=== PATIENT | male | born 1945 | race Caucasian/White ===

== ENCOUNTER → 2016-10-05 | Outpatient (CLI) | payer MEDICARE, OTHER ==
[~2016-10-05] MED LIST: ALLEGRA PO; ALPRAZOLAM PO; ALPRAZOLAM0.5 MG PO; AMLODIPINE BESY10 MG PO; AMOXICILLIN500 M1 PO; ASPIRIN81 M2 PO; ASPIRINEC PO; BUMEX2 MG PO; C-10001000 M1 PO; CELEBREX PO; CERTAGEN PO; COATED ASPIRIN325 M1 PO; COLACE PO; COLCHICINE0.6 M1 PO; CRESTOR PO; CRESTOR10 MG PO; FEXOFENADINE HC60 MG PO; FLEXERIL10 MG PO; HYDRALAZINE HCL25 MG PO; HYDROCODONE/APA1 T16 PO; HYTRIN PO; LOTREL 10-20 MG1 CAP PO; LOTREL 5/10 MG1 CAP PO; MULTI VITAMIN1 EACH PO; PERCOCET 10/3251 TAB PO; ROCALTROL0.5 MCG PO; SENNA S TABLET1 TAB PO; SODIUM BICARBO650 MG PO; TYLENOL325 M1 PO; VIT E PO; VITAMIN C PO; VITAMIN C1000 M2 PO; VITAMIN D 22000 UNIT PO; VITAMIN D 4001 UDTAB PO; VITAMIN D2000 UNIT PO; VITAMIN E400 UNI2 PO; XODOL 7.5-3001 EACH PO; ZANTAC PO; ZANTAC150 M1 PO; ZYLOPRIM100 MG DOB
--- NOTE | ~2016-10-05 | CT134 ---
[facility] A Service of [facility] RADIOLOGY TEXT RESULTS PATIENT: ANTONI LAINEZ LOCATION: [facility] : 43 UNIT #: [id number] AGE: [address]: Romel Goodman MD SEX: M ORDER DR: [id number] [place], [place] [address] [id number] O MR#: [id number] Acc #: [id number] NAME: ANTONI LAINEZ : 1945 SEX: M STUDY DATE/TIME: 10/05/2016 8:34 UNIT: [facility] ROOM: STUDY DESCRIPTION: CT Guide Attending Physician: Romel Goodman M.D. Ordering Physician: Romel Goodman M.D. Primary Care Physician: Venu Granados M.D. MEDICAL IMAGING REPORT This report is preliminary unless electronic signature is present EXAM CT-guided biopsy [place] kidney, 02/04/2017 CLINICAL HISTORY Stage 4 chronic kidney disease. TECHNIQUE This CT exam was performed with one or more of the following radiation dose reduction techniques: automatic exposure control, adjustment of mA and/or kV according to patient size, and iterative reconstruction. PROCEDURE Informed consent was obtained. A skin site was selected with CT guidance and marked, sterilely prepped and draped and locally anesthetized after conscious sedation was initiated with Fentanyl and Versed intravenously, with hemodynamic monitoring provided by the nursing staff throughout procedure. After preparation draping, local anesthesia an INRAD needle gun was used to obtain core specimens from the lower pole of the right kidney. There were no immediate complications and the patient tolerated the procedure well. IMPRESSION 1. Successful CT-guided core biopsy lower pole [place] right kidney, no immediate complication. 2. Conscious sedation as above, total sedation time 30 minutes. Dictated by... Antoni Ramírez M.D. THIS IS AN ELECTRONICALLY VERIFIED REPORT Antoni Ramírez M.D. at 10/11/2016 5:11 PM KENNETH/glenys [facility] A Service of [facility] RADIOLOGY TEXT RESULTS PATIENT: ANTONI LAINEZ LOCATION: [facility] #: [id number] : 43 UNIT #: [id number] AGE: [address]: Romel Goodman MD SEX: M ORDER DR: TD: 10/06/2016 13:05 JOB #: [id number] MEDICAL IMAGING REPORT COPY
[2016-10-05 06:55] LABS: BASOPHIL# 0.1 X10e3 (0-0.3); BASOPHIL% 1.1 % (0-2.5); EOSINOPHIL# 0.3 X10e3 (0-0.7); EOSINOPHIL% 5.3 % (0.0-7.0); HEMOGLOBIN 11.7 gm/dL (13.0-16.0); LYMPHOCYTE# 1.1 X10e3 (1.0-3.5); LYMPHOCYTE% 20.5 % (17.0-45.0); MEAN CELL VOLUME 90.4 FL (83-96); MEAN CORPUSCULAR HEMOGLOBIN 31.1 PG (28-34); MEAN CORPUSCULAR HGB CONC 34.4 g/dL (30-36); MEAN PLATELET VOLUME 8.3 FL (6.5-11.5); MONOCYTE# 0.5 X10e3 (0-1.0); MONOCYTE% 9.8 % (3.0-12.0); NEUTROPHIL# 3.3 X10e3 (1.5-7.1); NEUTROPHIL% 63.3 % (40-75); PLATELET COUNT 174 X10e3 (140-420); RED BLOOD COUNT 3.76 X10e (3.90-5.60); RED CELL DISTRIBUTION WIDTH 13.9 % (11.0-15.5); WHITE BLOOD COUNT 5.2 X10e3 (4.0-10.5)
[2016-10-05 06:56] LABS: DIFF IND NO
[2016-10-05 07:15] LABS: PARTIAL THROMBOPLASTIN TIME 25.1 SECONDS (23.5-31.3)
== END | disposition home or self-care (01) ==
LOC: CIVR 06:21
PROVIDERS: Internal Medicine Nephrology
DX: I12.9 Hypertensive chronic kidney disease with stage 1 through stage 4 chronic kidney disease, or unspecified chronic kidney disease (principal); N18.4 Chronic kidney disease, stage 4 (severe); R79.89 Other specified abnormal findings of blood chemistry; E78.2 Mixed hyperlipidemia; R80.1 Persistent proteinuria, unspecified
CPT/HCPCS: 36415; 77012; 85025; 85610; 85730; 88300; J2250; J3010

== ENCOUNTER → 2017-03-15 | Outpatient (CLI) | payer MEDICARE, OTHER ==
--- NOTE | ~2017-03-15 | CR63 ---
[facility] A Service of [facility] RADIOLOGY TEXT RESULTS PATIENT: MACK LAINEZ LOCATION: [facility] : 43 UNIT #: [id number] AGE: [address]: Romel Goodman MD SEX: M ORDER DR: [id number] [address] [id number] O MR#: [id number] Acc #: [id number] NAME: MACK LAINEZ : 1945 SEX: M STUDY DATE/TIME: 03/15/2017 16:30 UNIT: [facility] ROOM: STUDY DESCRIPTION: CR Chest 2 View Attending Physician: Romel Goodman M.D. Ordering Physician: Romel Goodman M.D. Primary Care Physician: Venu Granados M.D. MEDICAL IMAGING REPORT This report is preliminary unless electronic signature is present. 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 PROCEDURE Frontal and lateral views of the chest. COMPARISON 11/04/2014 FINDINGS Stable cardiomegaly. There is no dense consolidation, pleural fluid or pneumothorax. IMPRESSION No active process. Dictated by... Mariano Hightower M.D. THIS IS AN ELECTRONICALLY VERIFIED REPORT Mariano Hightower M.D. at 03/21/2017 8:54 AM EED/everette TD: 03/15/2017 22:57 JOB #: [id number] MEDICAL IMAGING REPORT Page 1 of 1
== END | disposition home or self-care (01) ==
LOC: SRAD 16:25
DX: R76.11 Nonspecific reaction to tuberculin skin test without active tuberculosis (principal)
CPT/HCPCS: 71020